=== PATIENT | female | born 1945 | race Caucasian/White ===

== ENCOUNTER 2017-11-04 10:12 | Outpatient (REF) | payer MEDICARE, MEDICAID, SELFPAY ==
[2017-11-04 10:37] LABS: INR 1.9 (1.0-3.5); Prothrombin Time 17.8 sec (9.3-10.8)
== END 2017-11-04 10:13 ==
LOC: NCHCN 10:12
PROVIDERS: PCP Family Medicine; Visit Provider Family Medicine
DX: I48.91 Unspecified atrial fibrillation (principal); Z79.01 Long term (current) use of anticoagulants
CPT/HCPCS: 85610

== ENCOUNTER 2017-11-12 12:36 | Outpatient (REF) | payer MEDICARE, MEDICAID, SELFPAY ==
[2017-11-12 12:52] LABS: INR 1.7 (1.0-3.5); Prothrombin Time 16.7 sec (9.3-10.8)
== END 2017-11-12 12:37 ==
LOC: NCHCN 12:36
PROVIDERS: PCP Family Medicine; Visit Provider Family Medicine
DX: Z79.01 Long term (current) use of anticoagulants (principal); I48.91 Unspecified atrial fibrillation
CPT/HCPCS: 85610

== ENCOUNTER 2017-11-19 10:28 | Outpatient (REF) | payer MEDICARE, MEDICAID, SELFPAY ==
[2017-11-19 11:15] LABS: INR 2.6 (1.0-3.5); Prothrombin Time 24.2 sec (9.3-10.8)
== END 2017-11-19 10:29 ==
LOC: NCHCN 10:28
PROVIDERS: PCP Family Medicine; Visit Provider Family Medicine
DX: I48.91 Unspecified atrial fibrillation (principal); Z79.01 Long term (current) use of anticoagulants
CPT/HCPCS: 85610

== ENCOUNTER 2017-12-10 13:15 | Outpatient (REF) | payer MEDICARE, MEDICAID, SELFPAY ==
[2017-12-10 14:03] LABS: INR 3.2 (1.0-3.5); Prothrombin Time 29.9 sec (9.3-10.8)
== END 2017-12-10 13:35 ==
LOC: NCHCN 13:15
PROVIDERS: PCP Family Medicine; Visit Provider Family Medicine
DX: I48.91 Unspecified atrial fibrillation (principal); Z79.01 Long term (current) use of anticoagulants
CPT/HCPCS: 85610

== ENCOUNTER 2017-12-17 15:12 | Outpatient (REF) | payer MEDICARE, MEDICAID, SELFPAY ==
[2017-12-17 18:04] LABS: INR 3.2 (1.0-3.5); Prothrombin Time 29.7 sec (9.3-10.8)
== END 2017-12-17 15:32 ==
LOC: NCHCN 15:12
PROVIDERS: PCP Family Medicine; Visit Provider Family Medicine
DX: Z79.01 Long term (current) use of anticoagulants (principal); R69 Illness, unspecified
CPT/HCPCS: 85610

== ENCOUNTER 2017-12-24 14:52 | Outpatient (REF) | payer MEDICARE, MEDICAID, SELFPAY ==
[2017-12-24 15:58] LABS: INR 2.3 (1.0-3.5); Prothrombin Time 21.4 sec (9.3-10.8)
== END 2017-12-24 15:12 ==
LOC: NCHCN 14:52
PROVIDERS: PCP Family Medicine; Visit Provider Family Medicine
DX: I48.2 Chronic atrial fibrillation (principal); Z79.02 Long term (current) use of antithrombotics/antiplatelets
CPT/HCPCS: 85610

== ENCOUNTER 2018-01-07 12:10 | Outpatient (REF) | payer MEDICARE, MEDICAID, SELFPAY ==
[2018-01-07 12:40] LABS: INR 2.5 (1.0-3.5); Prothrombin Time 23.2 sec (9.3-10.8)
== END 2018-01-07 12:30 ==
LOC: NCHCN 12:10
PROVIDERS: PCP Family Medicine; Visit Provider Family Medicine
DX: I48.91 Unspecified atrial fibrillation (principal); Z79.01 Long term (current) use of anticoagulants
CPT/HCPCS: 85610

== ENCOUNTER 2018-02-09 11:11 | Outpatient (REF) | payer MEDICARE, MEDICAID, SELFPAY ==
[2018-02-09 12:04] LABS: INR 2.1 (1.0-3.5); Prothrombin Time 20.2 sec (9.3-10.8)
== END 2018-02-09 11:31 ==
LOC: NCHCN 11:11
PROVIDERS: PCP Family Medicine; Visit Provider Family Medicine
DX: I48.91 Unspecified atrial fibrillation (principal); Z79.01 Long term (current) use of anticoagulants
CPT/HCPCS: 85610

== ENCOUNTER 2018-03-08 13:13 | Outpatient (REF) | payer MEDICARE, MEDICAID, SELFPAY ==
[2018-03-08 15:19] LABS: INR 2.2 (1.0-3.5); Prothrombin Time 22.2 sec (9.3-11.0)
== END 2018-03-08 13:33 ==
LOC: NCHCN 13:13
PROVIDERS: PCP Family Medicine; Visit Provider Family Medicine
DX: I48.91 Unspecified atrial fibrillation (principal); Z79.01 Long term (current) use of anticoagulants
CPT/HCPCS: 85610

== ENCOUNTER 2018-03-31 11:44 | Outpatient (REF) | payer MEDICARE, MEDICAID, SELFPAY ==
[2018-03-31 12:14] LABS: Prothrombin Time 20.6 sec (9.3-11.0)
== END 2018-03-31 12:04 ==
LOC: NCHCN 11:44
PROVIDERS: PCP Family Medicine; Visit Provider Family Medicine
DX: I48.91 Unspecified atrial fibrillation (principal); Z79.01 Long term (current) use of anticoagulants
CPT/HCPCS: 85610

== ENCOUNTER 2018-04-29 11:51 | Outpatient (REF) | payer MEDICARE, MEDICAID, SELFPAY ==
[2018-04-29 12:41] LABS: INR 2.4 (0.9-1.1); Prothrombin Time 24.2 sec (9.3-11.0)
== END 2018-04-29 12:11 ==
LOC: NCHCN 11:51
PROVIDERS: PCP Family Medicine; Visit Provider Family Medicine
DX: I48.91 Unspecified atrial fibrillation (principal); Z79.01 Long term (current) use of anticoagulants
CPT/HCPCS: 85610

== ENCOUNTER 2018-05-27 11:52 | Outpatient (REF) | payer MEDICARE, MEDICAID, SELFPAY ==
[2018-05-27 12:33] LABS: INR 2.3 (0.9-1.1); Prothrombin Time 23.5 sec (9.3-11.0)
== END 2018-05-27 12:12 ==
LOC: NCHCN 11:52
PROVIDERS: PCP Family Medicine; Visit Provider Family Medicine
DX: I48.91 Unspecified atrial fibrillation (principal); Z79.01 Long term (current) use of anticoagulants
CPT/HCPCS: 85610

== ENCOUNTER 2018-06-28 14:37 | Outpatient (REF) | payer MEDICARE, MEDICAID, SELFPAY ==
[2018-06-28 15:32] LABS: INR 1.8 (0.9-1.1); Prothrombin Time 18.4 sec (9.3-11.0)
== END 2018-06-28 14:57 ==
LOC: NCHCN 14:37
PROVIDERS: PCP Family Medicine; Visit Provider Family Medicine
DX: I48.91 Unspecified atrial fibrillation (principal); Z79.01 Long term (current) use of anticoagulants
CPT/HCPCS: 85610

== ENCOUNTER 2018-07-02 15:29 | Outpatient (REF) | payer MEDICARE, MEDICAID, SELFPAY ==
[2018-07-02 19:10] LABS: Anion Gap 8.1 mmol/L (3-11); BUN 20 mg/dL (7-18); CO2 30.9 mmol/L (21.0-32.0); CREATININE 1.25 mg/dL (0.55-1.02); Calcium 8.7 mg/dL (8.5-10.1); Chloride 102 mmol/L (98-107); Estimated GFR 42.01 (mL/min/1.73m2); Glucose 95 mg/dL (70-100); Potassium 4.1 mmol/L (3.5-5.1); Sodium 141 mmol/L (136-145); TSH (W/Ref FT4) 1.19 uIU/mL (0.358-3.74)
[2018-07-02 19:12] LABS: Hemoglobin A1C 5.4 % (4.5-6.2)
== END 2018-07-02 15:49 ==
LOC: NCHCN 15:29
PROVIDERS: PCP Family Medicine; Visit Provider Family Medicine
DX: I10 Essential (primary) hypertension (principal); E03.9 Hypothyroidism, unspecified; R79.89 Other specified abnormal findings of blood chemistry
CPT/HCPCS: 80048; 83036; 84443

== ENCOUNTER 2018-07-12 13:57 | Outpatient (REF) | payer MEDICARE, MEDICAID, SELFPAY ==
[2018-07-12 14:42] LABS: INR 1.9 (0.9-1.1); Prothrombin Time 19.1 sec (9.3-11.0)
== END 2018-07-12 14:17 ==
LOC: NCHCN 13:57
PROVIDERS: PCP Family Medicine; Visit Provider Family Medicine
DX: I48.91 Unspecified atrial fibrillation (principal); Z79.01 Long term (current) use of anticoagulants
CPT/HCPCS: 85610

== ENCOUNTER 2018-07-14 00:41 | Outpatient (CLI) | payer MEDICARE, MEDICAID, SELFPAY ==
--- NOTE | 2018-07-14 10:40 | DI.US_ITS ---
SYMPTOM/DIAGNOSIS: ABNL KIDNEY FUNCTION, R94.4, WORSENING RENAL FUNCTION RENAL ULTRASOUND: The right kidney measures 9.8. and the left kidney measures 10.8 cm. There is no evidence of hydronephrosis, a mass, cyst or nephrolithiasis. The bladder is non distended and contains approximately 7 cc's. SUMMARY: The kidneys are acoustically normal. The bladder could not be evaluated at the time of this examination due to incomplete filling.
== END 2018-07-14 01:01 ==
PROVIDERS: PCP Family Medicine; Visit Provider Family Medicine
DX: R94.4 Abnormal results of kidney function studies (principal); N28.9 Disorder of kidney and ureter, unspecified
CPT/HCPCS: 76770

== ENCOUNTER 2018-07-29 12:51 | Outpatient (REF) | payer MEDICARE, MEDICAID, SELFPAY ==
[2018-07-29 13:17] LABS: PTT Activated 41.7 sec (21.0-31.4)
== END 2018-07-29 13:11 ==
LOC: NCHCN 12:51
PROVIDERS: PCP Family Medicine; Visit Provider Family Medicine
DX: I48.91 Unspecified atrial fibrillation (principal); Z79.01 Long term (current) use of anticoagulants
CPT/HCPCS: 85730

== ENCOUNTER 2018-08-02 11:28 | Outpatient (REF) | payer MEDICARE, MEDICAID, SELFPAY ==
[2018-08-02 13:22] LABS: INR 2.3 (0.9-1.1); Prothrombin Time 23.4 sec (9.3-11.0)
[2018-08-02 13:41] LABS: Anion Gap 7.8 mmol/L (3-11); BUN 13 mg/dL (7-18); CO2 31.2 mmol/L (21.0-32.0); CREATININE 0.98 mg/dL (0.55-1.02); Calcium 8.7 mg/dL (8.5-10.1); Chloride 102 mmol/L (98-107); Estimated GFR 55.63 (mL/min/1.73m2); Glucose 60 mg/dL (70-100); Potassium 4.2 mmol/L (3.5-5.1); Sodium 141 mmol/L (136-145)
== END 2018-08-02 11:48 ==
LOC: LBN 11:28
PROVIDERS: PCP Family Medicine; Visit Provider Family Medicine
DX: R94.4 Abnormal results of kidney function studies (principal); Z79.01 Long term (current) use of anticoagulants; I48.2 Chronic atrial fibrillation
CPT/HCPCS: 80048; 85610

== ENCOUNTER 2018-09-02 12:09 | Outpatient (REF) | payer MEDICARE, MEDICAID, SELFPAY ==
[2018-09-02 13:13] LABS: INR 2.2 (0.9-1.1); Prothrombin Time 21.9 sec (9.3-11.0)
== END 2018-09-02 12:29 ==
LOC: NCHCN 12:09
PROVIDERS: PCP Family Medicine; Visit Provider Family Medicine
DX: I48.91 Unspecified atrial fibrillation (principal); Z79.01 Long term (current) use of anticoagulants
CPT/HCPCS: 85610

== ENCOUNTER 2018-09-29 12:09 | Outpatient (REF) | payer MEDICARE, MEDICAID, SELFPAY ==
[2018-09-29 13:45] LABS: INR 2.1 (0.9-1.1); Prothrombin Time 21.6 sec (9.3-11.0)
== END 2018-09-29 12:29 ==
LOC: NCHCN 12:09
PROVIDERS: PCP Family Medicine; Visit Provider Family Medicine
DX: I48.91 Unspecified atrial fibrillation (principal); Z79.01 Long term (current) use of anticoagulants
CPT/HCPCS: 85610

== ENCOUNTER 2018-11-01 18:30 | Outpatient (REF) | payer MEDICARE, MEDICAID, SELFPAY ==
[2018-11-01 14:22] LABS: INR 1.8 (0.9-1.1); Prothrombin Time 17.9 sec (9.3-11.0)
== END 2018-11-01 18:50 ==
LOC: LBN 18:30
PROVIDERS: PCP Family Medicine; Visit Provider Family Medicine
DX: Z79.01 Long term (current) use of anticoagulants (principal); R69 Illness, unspecified
CPT/HCPCS: 85610

== ENCOUNTER 2018-11-15 14:28 | Outpatient (REF) | payer MEDICARE, MEDICAID, SELFPAY ==
[2018-11-15 15:24] LABS: INR 1.8 (0.9-1.1); Prothrombin Time 18.3 sec (9.3-11.0)
== END 2018-11-15 14:48 ==
LOC: NCHCN 14:28
PROVIDERS: PCP Family Medicine; Visit Provider Family Medicine
DX: I48.91 Unspecified atrial fibrillation (principal); Z79.01 Long term (current) use of anticoagulants
CPT/HCPCS: 85610

== ENCOUNTER 2018-11-22 19:30 | Outpatient (REF) | payer MEDICARE, MEDICAID, SELFPAY ==
[2018-11-22 14:22] LABS: INR 2.1 (0.9-1.1); Prothrombin Time 20.9 sec (9.3-11.0)
== END 2018-11-22 19:50 ==
LOC: LBN 19:30
PROVIDERS: PCP Family Medicine; Visit Provider Family Medicine
DX: Z79.01 Long term (current) use of anticoagulants (principal); R69 Illness, unspecified
CPT/HCPCS: 85610

== ENCOUNTER 2018-12-29 15:11 | Outpatient (REF) | payer MEDICARE, MEDICAID, SELFPAY ==
[2018-12-29 15:42] LABS: Prothrombin Time 39.3 sec (9.3-11.0)
[2018-12-29 15:49] LABS: INR 4.1 (0.9-1.1)
== END 2018-12-29 15:31 ==
LOC: LBN 15:11
PROVIDERS: PCP Family Medicine; Visit Provider Family Medicine
DX: I48.91 Unspecified atrial fibrillation (principal); Z79.01 Long term (current) use of anticoagulants
CPT/HCPCS: 85610

== ENCOUNTER 2019-01-12 13:34 | Outpatient (REF) | payer MEDICARE, MEDICAID, SELFPAY ==
[2019-01-12 14:24] LABS: INR 3.6 (0.9-1.1); Prothrombin Time 35.4 sec (9.3-11.0)
== END 2019-01-12 13:54 ==
LOC: NCHCN 13:34
PROVIDERS: PCP Family Medicine; Visit Provider Family Medicine
DX: I48.91 Unspecified atrial fibrillation (principal); Z79.01 Long term (current) use of anticoagulants
CPT/HCPCS: 85610

== ENCOUNTER 2019-01-26 08:36 | Outpatient (REF) | payer MEDICARE, MEDICAID, SELFPAY ==
[2019-01-26 11:08] LABS: Prothrombin Time 24.1 sec (9.3-11.0)
[2019-01-26 11:30] LABS: INR 2.4 (0.9-1.1)
== END 2019-01-26 08:56 ==
LOC: NCHCN 08:36
PROVIDERS: PCP Family Medicine; Visit Provider Family Medicine
DX: I48.91 Unspecified atrial fibrillation (principal); Z79.01 Long term (current) use of anticoagulants
CPT/HCPCS: 85610

== ENCOUNTER 2019-02-25 13:45 | Outpatient (REF) | payer MEDICARE, MEDICAID, SELFPAY ==
[2019-02-25 15:17] LABS: INR 2.5 (0.9-1.1); Prothrombin Time 24.5 sec (9.3-11.0)
== END 2019-02-25 14:05 ==
LOC: LBN 13:45
PROVIDERS: PCP Family Medicine; Visit Provider Family Medicine
DX: I48.91 Unspecified atrial fibrillation (principal); Z79.01 Long term (current) use of anticoagulants
CPT/HCPCS: 85610

== ENCOUNTER 2019-03-28 15:10 | Outpatient (REF) | payer MEDICARE, MEDICAID, SELFPAY ==
[2019-03-28 15:42] LABS: Prothrombin Time 29.7 sec (9.3-11.0)
== END 2019-03-28 15:30 ==
LOC: NCHCN 15:10
PROVIDERS: PCP Family Medicine; Visit Provider Family Medicine
DX: I48.91 Unspecified atrial fibrillation (principal); Z79.01 Long term (current) use of anticoagulants
CPT/HCPCS: 85610

== ENCOUNTER 2019-04-27 08:20 | Outpatient (REF) | payer MEDICARE, MEDICAID, SELFPAY ==
[2019-04-27 09:20] LABS: INR 2.8 (0.9-1.1); Prothrombin Time 27.6 sec (9.3-11.0)
== END 2019-04-27 08:40 ==
LOC: LBN 08:20
PROVIDERS: PCP Family Medicine; Visit Provider Family Medicine
DX: I48.91 Unspecified atrial fibrillation (principal); Z79.01 Long term (current) use of anticoagulants
CPT/HCPCS: 85610

== ENCOUNTER 2019-05-25 09:42 | Outpatient (REF) | payer MEDICARE, MEDICAID, SELFPAY ==
[2019-05-25 10:33] LABS: INR 2.7 (0.9-1.1); Prothrombin Time 26.8 sec (9.3-11.0)
== END 2019-05-25 10:02 ==
LOC: NCHCN 09:42
PROVIDERS: PCP Family Medicine; Visit Provider Family Medicine
DX: I48.91 Unspecified atrial fibrillation (principal); Z79.01 Long term (current) use of anticoagulants
CPT/HCPCS: 85610

== ENCOUNTER 2019-06-30 15:42 | Outpatient (REF) | payer MEDICARE, MEDICAID, SELFPAY ==
[2019-06-30 16:56] LABS: INR 2.6 (0.9-1.1); Prothrombin Time 25.4 sec (9.3-11.0)
== END 2019-06-30 16:02 ==
LOC: NCHCN 15:42
PROVIDERS: PCP Family Medicine; Visit Provider Family Medicine
DX: I48.91 Unspecified atrial fibrillation (principal); Z79.01 Long term (current) use of anticoagulants
CPT/HCPCS: 85610

== ENCOUNTER 2019-08-03 12:40 | Outpatient (REF) | payer MEDICARE, MEDICAID, SELFPAY ==
[2019-08-03 13:45] LABS: INR 3.1 (0.9-1.1); Prothrombin Time 30.3 sec (9.3-11.0)
== END 2019-08-03 13:00 ==
LOC: LBN 12:40
PROVIDERS: PCP Family Medicine; Visit Provider Family Medicine
DX: I48.20 Chronic atrial fibrillation, unspecified (principal); Z79.01 Long term (current) use of anticoagulants
CPT/HCPCS: 85610

== ENCOUNTER 2019-09-02 13:17 | Outpatient (REF) | payer MEDICARE, MEDICAID, SELFPAY ==
[2019-09-02 13:59] LABS: INR 3.4 (0.9-1.1); Prothrombin Time 33.3 sec (9.3-11.0)
== END 2019-09-02 13:37 ==
LOC: LBN 13:17
PROVIDERS: PCP Family Medicine; Visit Provider Family Medicine
DX: I48.20 Chronic atrial fibrillation, unspecified (principal); Z79.01 Long term (current) use of anticoagulants
CPT/HCPCS: 85610

== ENCOUNTER 2019-09-16 16:19 | Outpatient (REF) | payer MEDICARE, MEDICAID, SELFPAY ==
[2019-09-16 18:07] LABS: INR 2.9 (0.9-1.1); Prothrombin Time 28.2 sec (9.3-11.0)
== END 2019-09-16 16:39 ==
LOC: LBN 16:19
PROVIDERS: PCP Family Medicine; Visit Provider Family Medicine
DX: I48.20 Chronic atrial fibrillation, unspecified (principal); Z79.01 Long term (current) use of anticoagulants
CPT/HCPCS: 85610

== ENCOUNTER 2019-09-27 21:56 | Outpatient (REF) | payer MEDICARE, MEDICAID, SELFPAY ==
[2019-09-27 17:34] LABS: INR 2.3 (0.9-1.1)
== END 2019-09-27 22:16 ==
LOC: LBN 21:56
PROVIDERS: PCP Family Medicine; Visit Provider Family Medicine
DX: I48.20 Chronic atrial fibrillation, unspecified (principal); Z79.01 Long term (current) use of anticoagulants
CPT/HCPCS: 85610

== ENCOUNTER 2019-10-26 14:18 | Outpatient (REF) | payer MEDICARE, MEDICAID, SELFPAY ==
[2019-10-26 14:56] LABS: INR 1.9 (0.9-1.1); Prothrombin Time 19.1 sec (9.3-11.0)
== END 2019-10-26 14:38 ==
LOC: NCHCN 14:18
PROVIDERS: PCP Family Medicine; Visit Provider Family Medicine
DX: Z79.01 Long term (current) use of anticoagulants (principal)
CPT/HCPCS: 85610

== ENCOUNTER 2019-11-11 18:36 | Outpatient (REF) | payer MEDICARE, MEDICAID, SELFPAY ==
[2019-11-11 16:11] LABS: Prothrombin Time 19.6 sec (9.3-11.0)
[2019-11-11 16:47] LABS: Anion Gap 9.2 mmol/L (3-11); BUN 17 mg/dL (7-18); CO2 27.8 mmol/L (21.0-32.0); CREATININE 0.96 mg/dL (0.55-1.02); Calcium 8.6 mg/dL (8.5-10.1); Chloride 102 mmol/L (98-107); Estimated GFR 56.66 (mL/min/1.73m2); Glucose 120 mg/dL (74-106); Potassium 4.3 mmol/L (3.5-5.1); Sodium 139 mmol/L (136-145); TSH (W/Ref FT4) 0.77 uIU/mL (0.36-3.74)
== END 2019-11-11 18:56 ==
LOC: NCHCN 18:36
PROVIDERS: PCP Family Medicine; Visit Provider Family Medicine
DX: I10 Essential (primary) hypertension (principal); E03.9 Hypothyroidism, unspecified; I48.0 Paroxysmal atrial fibrillation
CPT/HCPCS: 80048; 84443; 85610

== ENCOUNTER 2019-12-16 13:55 | Outpatient (REF) | payer MEDICARE, MEDICAID, SELFPAY ==
[2019-12-16 14:53] LABS: INR 2.4 (0.9-1.1); Prothrombin Time 23.8 sec (9.3-11.0)
== END 2019-12-16 14:15 ==
LOC: LBN 13:55
PROVIDERS: PCP Family Medicine; Visit Provider Family Medicine
DX: I48.0 Paroxysmal atrial fibrillation (principal); Z79.01 Long term (current) use of anticoagulants
CPT/HCPCS: 85610

== ENCOUNTER 2020-01-19 14:17 | Outpatient (REF) | payer MEDICARE, MEDICAID, SELFPAY ==
[2020-01-19 10:57] LABS: INR 1.6 (0.9-1.1); Prothrombin Time 16.4 sec (9.3-11.0)
== END 2020-01-19 14:37 ==
LOC: NCHCN 14:17
PROVIDERS: PCP Family Medicine; Visit Provider Family Medicine
DX: Z79.01 Long term (current) use of anticoagulants (principal)
CPT/HCPCS: 85610

== ENCOUNTER 2020-03-21 16:07 | Outpatient (REF) | payer MEDICARE, MEDICAID, SELFPAY ==
[2020-03-21 14:53] LABS: INR 2.5 (0.9-1.1); Prothrombin Time 24.2 sec (9.3-11.0)
== END 2020-03-21 16:27 ==
LOC: LBN 16:07
PROVIDERS: PCP Family Medicine; Visit Provider Family Medicine
DX: I48.0 Paroxysmal atrial fibrillation (principal); Z79.01 Long term (current) use of anticoagulants
CPT/HCPCS: 85610

== ENCOUNTER 2020-04-18 15:22 | Outpatient (REF) | payer MEDICARE, MEDICAID, SELFPAY ==
[2020-04-18 14:33] LABS: Prothrombin Time 19.4 sec (9.3-11.0)
== END 2020-04-18 15:42 ==
LOC: LBN 15:22
PROVIDERS: PCP Family Medicine; Visit Provider Nurse Practitioner Family
DX: Z79.01 Long term (current) use of anticoagulants (principal)
CPT/HCPCS: 85610

== ENCOUNTER 2020-05-15 21:53 | Outpatient (REF) | payer MEDICARE, MEDICAID, SELFPAY ==
[2020-05-15 14:03] LABS: ALT 14 U/L (14-59); AST 13 U/L (15-37); Alkaline Phosphatase 65 U/L (46-116); Anion Gap 3.7 mmol/L (3-11); BUN 17 mg/dL (7-18); Bilirubin, Total 0.6 mg/dL (0.2-1.0); CO2 31.3 mmol/L (21.0-32.0); CREATININE 0.9 mg/dL (0.55-1.02); Calcium 8.3 mg/dL (8.5-10.1); Chloride 104 mmol/L (98-107); Glucose 99 mg/dL (74-106); Potassium 4.4 mmol/L (3.5-5.1); Sodium 139 mmol/L (136-145); Total Protein 6.3 g/dL (6.4-8.2)
[2020-05-15 14:17] LABS: INR 1.4 (0.9-1.1); Prothrombin Time 13.8 sec (9.3-11.0)
[2020-05-15 14:35] LABS: Hemoglobin A1C 5.5 % (<5.7)
== END 2020-05-15 21:54 | disposition home or self-care (01) ==
LOC: NCHCN 21:53
PROVIDERS: PCP Family Medicine; Visit Provider Nurse Practitioner Family
DX: I48.0 Paroxysmal atrial fibrillation (principal); I10 Essential (primary) hypertension; N18.30 Chronic kidney disease, stage 3 unspecified; Z79.01 Long term (current) use of anticoagulants
CPT/HCPCS: 80053; 83036; 85610

== ENCOUNTER 2020-05-23 16:07 | Outpatient (REF) | payer MEDICARE, MEDICAID, SELFPAY ==
[2020-05-23 13:40] LABS: INR 1.8 (0.9-1.1); Prothrombin Time 17.9 sec (9.3-11.0)
== END 2020-05-23 16:08 | disposition home or self-care (01) ==
LOC: NCHCN 16:07
PROVIDERS: PCP Family Medicine; Visit Provider Nurse Practitioner Family
DX: I48.91 Unspecified atrial fibrillation (principal); Z79.01 Long term (current) use of anticoagulants
CPT/HCPCS: 85610

== ENCOUNTER 2020-05-30 16:17 | Outpatient (REF) | payer MEDICARE, MEDICAID, SELFPAY ==
[2020-05-30 14:52] LABS: INR 1.9 (0.9-1.1); Prothrombin Time 18.7 sec (9.3-11.0)
[2020-05-30 15:44] LABS: COMMENT (LAB VIEW ONLY) 210.13 mg/dL
[2020-05-30 15:48] LABS: Bilirubin Negative (Negative); Blood Negative (Negative); Clarity Clear (Clear); Glucose Negative (Negative); Ketones Negative (Negative); Leukocyte Esterase Negative (Negative); Nitrite Negative (Negative); Specific Gravity >= 1.030 (1.005-1.025); Urobilinogen 0.2 EU/dL (Up TO 0.2)
== END 2020-05-30 16:18 | disposition home or self-care (01) ==
LOC: NCHCN 16:17
PROVIDERS: PCP Family Medicine; Visit Provider Nurse Practitioner Family
DX: I10 Essential (primary) hypertension (principal); I48.0 Paroxysmal atrial fibrillation; E03.9 Hypothyroidism, unspecified; N18.30 Chronic kidney disease, stage 3 unspecified; I87.8 Other specified disorders of veins; N39.46 Mixed incontinence; Z79.01 Long term (current) use of anticoagulants
CPT/HCPCS: 81003; 82043; 82570; 85610

== ENCOUNTER 2020-06-11 13:15 | Outpatient (REF) | payer MEDICARE, MEDICAID, SELFPAY ==
[2020-06-11 14:21] LABS: INR 2.3 (0.9-1.1); Prothrombin Time 22.4 sec (9.3-11.0)
== END 2020-06-11 13:16 | disposition home or self-care (01) ==
LOC: LBN 13:15
PROVIDERS: PCP Family Medicine; Visit Provider Nurse Practitioner Family
DX: I48.20 Chronic atrial fibrillation, unspecified (principal); Z79.01 Long term (current) use of anticoagulants
CPT/HCPCS: 85610

== ENCOUNTER 2020-06-25 14:21 | Outpatient (REF) | payer MEDICARE, MEDICAID, SELFPAY ==
[2020-06-25 14:46] LABS: Prothrombin Time 20.2 sec (9.3-11.0)
== END 2020-06-25 14:22 | disposition home or self-care (01) ==
LOC: NCHCN 14:21
PROVIDERS: PCP Family Medicine; Visit Provider Nurse Practitioner Family
DX: I48.20 Chronic atrial fibrillation, unspecified (principal); Z79.01 Long term (current) use of anticoagulants
CPT/HCPCS: 85610

== ENCOUNTER 2020-07-09 10:58 | Outpatient (REF) | payer MEDICARE, MEDICAID, SELFPAY ==
[2020-07-09 12:07] LABS: INR 2.5 (0.9-1.1); Prothrombin Time 24.8 sec (9.3-11.0)
== END 2020-07-09 10:59 | disposition home or self-care (01) ==
LOC: LBN 10:58
PROVIDERS: PCP Family Medicine; Visit Provider Nurse Practitioner Family
DX: I48.20 Chronic atrial fibrillation, unspecified (principal); Z79.01 Long term (current) use of anticoagulants
CPT/HCPCS: 85610

== ENCOUNTER 2020-08-06 14:19 | Outpatient (REF) | payer MEDICARE, MEDICAID, SELFPAY ==
[2020-08-06 14:44] LABS: INR 3.2 (0.9-1.1); Prothrombin Time 31.4 sec (9.3-11.0)
== END 2020-08-06 14:20 | disposition home or self-care (01) ==
LOC: NCHCN 14:19
PROVIDERS: PCP Family Medicine; Visit Provider Nurse Practitioner Family
DX: I48.20 Chronic atrial fibrillation, unspecified (principal); Z79.01 Long term (current) use of anticoagulants
CPT/HCPCS: 85610

== ENCOUNTER 2020-08-13 12:24 | Outpatient (REF) | payer MEDICARE, MEDICAID, SELFPAY | END 2020-08-13 12:25 | disposition home or self-care (01) | LOC: LBN 12:24 | PROVIDERS: PCP Family Medicine; Visit Provider Nurse Practitioner Family | DX: I48.20 Chronic atrial fibrillation, unspecified (principal); Z79.01 Long term (current) use of anticoagulants | CPT/HCPCS: 85610 ==

== ENCOUNTER 2020-09-13 18:21 | Outpatient (REF) | payer MEDICARE, MEDICAID, SELFPAY ==
[2020-09-13 13:14] LABS: INR 1.9 (0.9-1.1); Prothrombin Time 18.4 sec (9.3-11.0)
== END 2020-09-13 18:22 | disposition home or self-care (01) ==
LOC: LBN 18:21
PROVIDERS: PCP Family Medicine; Visit Provider Nurse Practitioner Family
DX: I48.20 Chronic atrial fibrillation, unspecified (principal); Z79.01 Long term (current) use of anticoagulants
CPT/HCPCS: 85610

== ENCOUNTER 2020-09-24 10:37 | Outpatient (REF) | payer MEDICARE, MEDICAID, SELFPAY | END 2020-09-24 10:38 | disposition home or self-care (01) | LOC: LBN 10:37 | PROVIDERS: PCP Family Medicine; Visit Provider Nurse Practitioner Family | DX: I48.20 Chronic atrial fibrillation, unspecified (principal); Z79.01 Long term (current) use of anticoagulants | CPT/HCPCS: 85610 ==

== ENCOUNTER 2020-10-01 21:10 | Outpatient (REF) | payer MEDICARE, MEDICAID, SELFPAY ==
[2020-10-01 16:48] LABS: INR 2.1 (0.9-1.1); Prothrombin Time 21.1 sec (9.3-11.0)
== END 2020-10-01 21:11 | disposition home or self-care (01) ==
LOC: NCHCN 21:10
PROVIDERS: PCP Family Medicine; Visit Provider Nurse Practitioner Family
DX: Z79.01 Long term (current) use of anticoagulants (principal)
CPT/HCPCS: 85610

== ENCOUNTER 2020-10-16 13:21 | Outpatient (REF) | payer MEDICARE, MEDICAID, SELFPAY ==
[2020-10-16 14:27] LABS: INR 2.8 (0.9-1.1); Prothrombin Time 27.4 sec (9.3-11.0)
== END 2020-10-16 13:22 | disposition home or self-care (01) ==
LOC: LBN 13:21
PROVIDERS: PCP Family Medicine; Visit Provider Nurse Practitioner Family
DX: I48.20 Chronic atrial fibrillation, unspecified (principal); Z79.01 Long term (current) use of anticoagulants
CPT/HCPCS: 85610

== ENCOUNTER 2020-11-19 16:55 | Outpatient (REF) | payer MEDICARE, MEDICAID, SELFPAY ==
[2020-11-19 18:24] LABS: INR 2.8 (0.9-1.1); Prothrombin Time 27.6 sec (9.3-11.0)
== END 2020-11-19 16:56 | disposition home or self-care (01) ==
LOC: LBN 16:55
PROVIDERS: PCP Family Medicine; Visit Provider Nurse Practitioner Family
DX: I48.20 Chronic atrial fibrillation, unspecified (principal); Z79.01 Long term (current) use of anticoagulants
CPT/HCPCS: 85610

== ENCOUNTER 2020-12-17 16:10 | Outpatient (REF) | payer MEDICARE, MEDICAID, SELFPAY ==
[2020-12-17 16:52] LABS: INR 2.4 (0.9-1.1); Prothrombin Time 23.5 sec (9.3-11.0)
== END 2020-12-17 16:11 | disposition home or self-care (01) ==
LOC: NCHCN 16:10
PROVIDERS: PCP Family Medicine; Visit Provider Nurse Practitioner Family
DX: I48.0 Paroxysmal atrial fibrillation (principal)
CPT/HCPCS: 85610

== ENCOUNTER 2021-01-16 09:58 | Outpatient (REF) | payer MEDICARE, MEDICAID, SELFPAY ==
[2021-01-16 10:56] LABS: INR 2.8 (0.9-1.1); Prothrombin Time 27.4 sec (9.3-11.0)
== END 2021-01-16 09:59 | disposition home or self-care (01) ==
LOC: LBN 09:58
PROVIDERS: PCP Family Medicine; Visit Provider Nurse Practitioner Family
DX: I48.0 Paroxysmal atrial fibrillation (principal)
CPT/HCPCS: 85610

== ENCOUNTER 2021-03-29 11:44 | Outpatient (CLI) | payer MEDICARE, MEDICAID, SELFPAY ==
[2021-03-31 15:32] LABS: COVID-19 RT-PCR UVMMC Result Negative (Negative)
== END 2021-03-29 11:45 | disposition home or self-care (01) ==
PROVIDERS: PCP Family Medicine; Visit Provider Nurse Practitioner Family
DX: Z20.822 Contact with and (suspected) exposure to COVID-19 (principal)
CPT/HCPCS: U0003

== ENCOUNTER 2021-04-23 20:26 | Outpatient (REF) | payer MEDICARE, MEDICAID, SELFPAY ==
[2021-04-23 16:15] LABS: Bilirubin Negative (Negative); Blood Negative (Negative); Clarity Clear (Clear); Glucose Negative (Negative); Ketones Negative (Negative); Leukocyte Esterase Negative (Negative); Nitrite Negative (Negative); Specific Gravity 1.025 (1.005-1.025); Urobilinogen 0.2 EU/dL (Up TO 0.2)
[2021-04-23 16:45] LABS: COMMENT (LAB VIEW ONLY) 138.38 mg/dL; Microalb ug/mg Crea 8.3 ug/mg Cr
[2021-04-23 16:46] LABS: Anion Gap 7.4 mmol/L (3-11); BUN 17 mg/dL (7-18); CO2 31.6 mmol/L (21.0-32.0); CREATININE 0.9 mg/dL (0.55-1.02); Calcium 9.1 mg/dL (8.5-10.1); Chloride 102 mmol/L (98-107); Glucose 90 mg/dL (74-106); Potassium 4.2 mmol/L (3.5-5.1); Sodium 141 mmol/L (136-145); TSH (W/Ref FT4) 1.11 uIU/mL (0.36-3.74)
== END 2021-04-23 20:27 | disposition home or self-care (01) ==
LOC: NCHCN 20:26
PROVIDERS: PCP Family Medicine; Visit Provider Nurse Practitioner Family
DX: I48.0 Paroxysmal atrial fibrillation (principal); E03.9 Hypothyroidism, unspecified; I87.8 Other specified disorders of veins; N18.30 Chronic kidney disease, stage 3 unspecified; N39.46 Mixed incontinence
CPT/HCPCS: 80048; 81003; 82043; 82570; 84443

== ENCOUNTER 2021-07-26 20:12 | Outpatient (REF) | payer MEDICARE, MEDICAID, SELFPAY ==
[2021-07-27 13:16] LABS: COVID-19 RT-PCR UVMMC Result Negative (Negative)
== END 2021-07-26 20:13 | disposition home or self-care (01) ==
LOC: NCHCN 20:12
PROVIDERS: PCP Nurse Practitioner Family; Visit Provider Nurse Practitioner Family
DX: Z20.822 Contact with and (suspected) exposure to COVID-19 (principal)
CPT/HCPCS: U0003; U0005

== ENCOUNTER 2021-07-30 17:48 | Outpatient (REF) | payer MEDICARE, MEDICAID, SELFPAY ==
[2021-07-31 01:56] LABS: COVID-19 RT-PCR UVMMC Result Positive (Negative)
== END 2021-07-30 17:49 | disposition home or self-care (01) ==
LOC: NCHCN 17:48
PROVIDERS: PCP Nurse Practitioner Family; Visit Provider Nurse Practitioner Family
DX: Z20.822 Contact with and (suspected) exposure to COVID-19 (principal)
CPT/HCPCS: U0003; U0005

== ENCOUNTER 2021-08-01 10:33 | Outpatient (CLI) | payer MEDICARE, MEDICAID, SELFPAY ==
[2021-08-01 13:00] VITALS: BP 174/93; PULSE 77; RESP 20; TEMP 36.1; O2SAT 99
[2021-08-01 14:00] VITALS: BP 191/95; PULSE 72; RESP 18; TEMP 36.6; O2SAT 97
== END 2021-08-01 10:34 | disposition home or self-care (01) ==
PROVIDERS: PCP Nurse Practitioner Family; Visit Provider Family Medicine
DX: U07.1 COVID-19 (principal)
CPT/HCPCS: 96374; Q0222

== ENCOUNTER 2022-05-08 13:34 | Outpatient (REF) | payer MEDICARE, MEDICAID, SELFPAY ==
[2022-05-08 10:15] LABS: Bilirubin Negative (Negative); Blood Negative (Negative); Clarity Clear (Clear); Glucose Negative (Negative); Ketones Negative (Negative); Leukocyte Esterase Trace (Negative); Nitrite Negative (Negative); Specific Gravity <= 1.005 (1.005-1.025); Urobilinogen 0.2 EU/dL (Up TO 0.2)
[2022-05-08 10:22] LABS: Bacteria Negative HPF (Negative); C & S Indicated? Yes; Casts Negative LPF (Negative); Crystals Negative HPF (Negative); Epithelial Cells Rare HPF (Negative); Mucus Negative (Negative); RBC Negative HPF (0-2); WBC 0-2 HPF (0-5)
[2022-05-08 10:40] LABS: COMMENT (LAB VIEW ONLY) 3.01 mg/dL
[2022-05-08 10:43] LABS: Anion Gap 6.6 mmol/L (3-11); BUN 17 mg/dL (7-18); CO2 31.4 mmol/L (21.0-32.0); CREATININE 0.9 mg/dL (0.55-1.02); Chloride 102 mmol/L (98-107); Estimated GFR 65.84 (mL/min/1.73m2); Glucose 88 mg/dL (74-106); Potassium 3.7 mmol/L (3.5-5.1); Sodium 140 mmol/L (136-145); TSH (W/Ref FT4) 1.08 uIU/mL (0.36-3.74)
== END 2022-05-08 13:35 | disposition home or self-care (01) ==
LOC: NCHCN 13:34
PROVIDERS: PCP Nurse Practitioner Family; Visit Provider Nurse Practitioner Family
DX: I10 Essential (primary) hypertension (principal); E03.9 Hypothyroidism, unspecified; N18.30 Chronic kidney disease, stage 3 unspecified; R82.998 Other abnormal findings in urine
CPT/HCPCS: 80048; 81003; 81015; 82043; 82570; 84443; 87086

== ENCOUNTER 2022-11-17 14:12 | Outpatient (REF) | payer MEDICARE, MEDICAID, SELFPAY ==
[2022-11-17 16:32] LABS: Anion Gap 6.1 mmol/L (3-11); BUN 15 mg/dL (7-18); CO2 30.9 mmol/L (21.0-32.0); CREATININE 0.8 mg/dL (0.55-1.02); Calcium 8.9 mg/dL (8.5-10.1); Chloride 103 mmol/L (98-107); Estimated GFR 75.37 (mL/min/1.73m2); Glucose 90 mg/dL (74-106); Potassium 4.5 mmol/L (3.5-5.1); Sodium 140 mmol/L (136-145)
[2022-11-17 16:51] LABS: COMMENT (LAB VIEW ONLY) 155.21 mg/dL; Microalb ug/mg Crea 15.1 ug/mg Cr
== END 2022-11-17 14:13 | disposition home or self-care (01) ==
LOC: NCHCN 14:12
PROVIDERS: PCP Nurse Practitioner Family; Visit Provider Nurse Practitioner Family
DX: I10 Essential (primary) hypertension (principal); N18.30 Chronic kidney disease, stage 3 unspecified; E88.09 Other disorders of plasma-protein metabolism, not elsewhere classified; N39.46 Mixed incontinence
CPT/HCPCS: 80048; 82043; 82570

== ENCOUNTER 2022-12-03 16:27 | Outpatient (REF) | payer MEDICARE, MEDICAID, SELFPAY ==
[2022-12-03 22:17] LABS: BUN 14 mg/dL (7-18); Calcium 8.9 mg/dL (8.5-10.1); Chloride 101 mmol/L (98-107); Estimated GFR 57.66 (mL/min/1.73m2); Glucose 91 mg/dL (74-106); Potassium 4.3 mmol/L (3.5-5.1); Sodium 138 mmol/L (136-145)
== END 2022-12-03 16:28 | disposition home or self-care (01) ==
LOC: NCHCN 16:27
PROVIDERS: PCP Nurse Practitioner Family; Visit Provider Nurse Practitioner Family
DX: I10 Essential (primary) hypertension (principal)
CPT/HCPCS: 80048

== ENCOUNTER 2023-02-15 15:20 | Outpatient (REF) | payer MEDICARE, MEDICAID, SELFPAY ==
[2023-02-15 16:58] LABS: Abs Immature Grans 0.01 10^3/uL (0.0-0.06); Absolute Basophil Count 0.03 10^3/uL (0.0-0.2); Absolute Eosinophil Count 0.38 10^3/uL (0.0-0.7); Absolute Lymphocyte Count 0.88 10^3/uL (1.2-3.4); Absolute Monocyte Count 0.36 10^3/uL (0.1-0.8); Absolute Neutrophil Count 5.14 10^3/uL (1.2-6.7); Basophils % 0.4; Eosinophils % 5.6; HCT 39.5 % (36.0-46.0); HGB 12.4 g/dL (11.2-15.7); Immature Grans % 0.1; Lymphocytes % 12.9; MCH 29.3 pg (27.0-33.0); MCHC 31.4 % (32.0-36.0); MCV 93 fL (80-95); Monocytes % 5.3; Neutrophils % 75.7; Platelet Count 236 10^3/uL (130-400); RBC 4.23 10^6/uL (3.93-5.22); RDW 13.9 % (11.7-14.6); RDW-SD 48.1 fL
[2023-02-15 17:14] LABS: ALT 17 U/L (14-59); AST 16 U/L (15-37); Albumin 3.5 g/dL (3.4-5.0); Alkaline Phosphatase 72 U/L (46-116); Anion Gap 7.1 mmol/L (3-11); BUN 18 mg/dL (7-18); Bilirubin, Total 0.5 mg/dL (0.2-1.0); CO2 29.9 mmol/L (21.0-32.0); CREATININE 0.9 mg/dL (0.55-1.02); Chloride 104 mmol/L (98-107); Estimated GFR 65.44 (mL/min/1.73m2); Glucose 75 mg/dL (74-106); Potassium 4.2 mmol/L (3.5-5.1); Sodium 141 mmol/L (136-145); Total Protein 6.9 g/dL (6.4-8.2)
== END 2023-02-15 15:21 | disposition home or self-care (01) ==
LOC: NCHCN 15:20
PROVIDERS: PCP Nurse Practitioner Family; Visit Provider Nurse Practitioner Family
DX: L28.2 Other prurigo (principal)
CPT/HCPCS: 80053; 85025

== ENCOUNTER 2023-02-17 14:26 | Outpatient (REF) | payer MEDICARE, MEDICAID, SELFPAY ==
--- NOTE | 2023-02-17 09:30 | SKI_PTH ---
PATIENT: Yasmin Vanegas LOC: [facility]#:[id number] AGE/SX: 77/F ROOM: RE02/17/[address]: Liliana Noble : 1945 BED: DIS: 02/17/2023 SPEC #: [id number] RECD: 02/17/23 16:00 STATUS: DAVIDE TEIXEIRA #: [id number] VIRAL: 02/17/23 09:[address]: Liliana Noble DEPT: Surgical Specimen RECD BY: Page Ballard Tissues: 1 - SKIN BIOPSY(SHAVE/PUNCH) 2 - SKIN BIOPSY(SHAVE/PUNCH) Procedures: SKIN LEVEL 4 SPECIAL STAIN 1 Comments: [id number]
== END 2023-02-17 14:27 | disposition home or self-care (01) ==
LOC: NCHCN 14:26
PROVIDERS: PCP Nurse Practitioner Family; Visit Provider Nurse Practitioner Family
DX: L28.2 Other prurigo (principal)
CPT/HCPCS: 88305; 88312

== ENCOUNTER 2023-04-26 16:00 | Outpatient (REF) | payer MEDICARE, MEDICAID, SELFPAY ==
[2023-04-26 16:26] LABS: Anion Gap 7.8 mmol/L (3-11); BUN 20 mg/dL (7-18); CO2 29.2 mmol/L (21.0-32.0); CREATININE 0.9 mg/dL (0.55-1.02); Calcium 8.8 mg/dL (8.5-10.1); Chloride 105 mmol/L (98-107); Estimated GFR 65.44 (mL/min/1.73m2); Glucose 87 mg/dL (74-106); Potassium 4.4 mmol/L (3.5-5.1); Sodium 142 mmol/L (136-145); TSH (W/Ref FT4) 0.44 uIU/mL (0.36-3.74)
== END 2023-04-26 16:01 | disposition home or self-care (01) ==
LOC: NCHCN 16:00
PROVIDERS: PCP Nurse Practitioner Family; Visit Provider Nurse Practitioner Family
DX: I10 Essential (primary) hypertension (principal); E03.9 Hypothyroidism, unspecified
CPT/HCPCS: 80048; 84443

== ENCOUNTER 2023-05-28 15:52 | Outpatient (REF) | payer MEDICARE, MEDICAID, SELFPAY ==
[2023-05-28 15:08] LABS: Bilirubin Negative (Negative); Blood Trace-intact (Negative); Clarity Sl Cloudy (Clear); Glucose Negative (Negative); Ketones Negative (Negative); Leukocyte Esterase Small (Negative); Nitrite Negative (Negative); Specific Gravity >= 1.030 (1.005-1.025); Urobilinogen 0.2 mg/dL (Up to 0.2); pH 5.5 (5-8)
[2023-05-28 15:25] LABS: COMMENT (LAB VIEW ONLY) 173.03 mg/dL; Microalb ug/mg Crea 12.1 ug/mg Cr
== END 2023-05-28 15:53 | disposition home or self-care (01) ==
LOC: NCHCN 15:52
PROVIDERS: PCP Nurse Practitioner Family; Visit Provider Nurse Practitioner Family
DX: I10 Essential (primary) hypertension (principal); R82.998 Other abnormal findings in urine
CPT/HCPCS: 81003; 82043; 82570

== ENCOUNTER → 2023-06-10 08:44 | Outpatient (BNVA) | payer MEDICARE, MEDICAID, SELFPAY | PROVIDERS: PCP Nurse Practitioner Family; Referring Provider Nurse Practitioner Family; Visit Provider Podiatrist | DX: L60.3 Nail dystrophy (principal); B35.1 Tinea unguium; I87.2 Venous insufficiency (chronic) (peripheral); R60.0 Localized edema; I70.203 Unspecified atherosclerosis of native arteries of extremities, bilateral legs | CPT/HCPCS: 11721; 99203 ==

== ENCOUNTER → 2023-09-30 13:28 | Outpatient (BNVA) | payer MEDICARE, MEDICAID, SELFPAY | PROVIDERS: PCP Nurse Practitioner Family; Referring Provider Nurse Practitioner Family; Visit Provider Physical Therapy Assistant | DX: I70.203 Unspecified atherosclerosis of native arteries of extremities, bilateral legs (principal) | CPT/HCPCS: 93922 ==

== ENCOUNTER → 2023-10-12 08:59 | Outpatient (BNVA) | payer MEDICARE, MEDICAID, SELFPAY | PROVIDERS: PCP Nurse Practitioner Family; Referring Provider Nurse Practitioner Family; Visit Provider Podiatrist | DX: L97.511 Non-pressure chronic ulcer of other part of right foot limited to breakdown of skin (principal); I70.203 Unspecified atherosclerosis of native arteries of extremities, bilateral legs; B35.1 Tinea unguium; N18.30 Chronic kidney disease, stage 3 unspecified; L60.3 Nail dystrophy; I87.2 Venous insufficiency (chronic) (peripheral); R60.9 Edema, unspecified | CPT/HCPCS: 11721 ==

== ENCOUNTER 2023-10-24 16:00 | Outpatient (REF) | payer MEDICARE, MEDICAID, SELFPAY ==
[2023-10-24 16:19] LABS: Calculated LDL 61 mg/dL (<100); Cholesterol 135 mg/dL (<200); HDL Cholesterol 65 mg/dL (40-60); Triglyceride 48 mg/dL (<150)
== END 2023-10-24 16:01 | disposition home or self-care (01) ==
LOC: NCHCN 16:00
PROVIDERS: PCP Nurse Practitioner Family; Visit Provider Nurse Practitioner Family
DX: I10 Essential (primary) hypertension (principal); I87.2 Venous insufficiency (chronic) (peripheral); E03.9 Hypothyroidism, unspecified
CPT/HCPCS: 80061

== ENCOUNTER 2023-11-25 18:04 | Outpatient (REF) | payer MEDICARE, MEDICAID, SELFPAY ==
[2023-11-25 16:25] LABS: ALT 43 U/L (14-59); AST 32 U/L (15-37); Albumin 3.6 g/dL (3.4-5.0); Alkaline Phosphatase 82 U/L (46-116); Anion Gap 6.5 mmol/L (3-11); BUN 18 mg/dL (7-18); Bilirubin, Total 0.62 mg/dL (0.2-1.0); CO2 31.5 mmol/L (21.0-32.0); CREATININE 0.8 mg/dL (0.55-1.02); Calcium 8.8 mg/dL (8.5-10.1); Calculated LDL 39 mg/dL (<100); Chloride 104 mmol/L (98-107); Cholesterol 122 mg/dL (<200); Glucose 89 mg/dL (74-106); HDL Cholesterol 78 mg/dL (40-60); Potassium 4.1 mmol/L (3.5-5.1); Sodium 142 mmol/L (136-145); Total Protein 7.3 g/dL (6.4-8.2); Triglyceride 28 mg/dL (<150)
== END 2023-11-25 18:05 | disposition home or self-care (01) ==
LOC: NCHCN 18:04
PROVIDERS: PCP Nurse Practitioner Family; Visit Provider Nurse Practitioner Family
DX: I87.2 Venous insufficiency (chronic) (peripheral) (principal)
CPT/HCPCS: 80053; 80061

== ENCOUNTER 2024-01-12 16:32 | Outpatient (REF) | payer MEDICARE, MEDICAID, SELFPAY ==
[2024-01-12 16:04] LABS: Bilirubin Negative (Negative); Blood Trace-intact (Negative); Clarity Clear (Clear); Glucose Negative (Negative); Ketones Negative (Negative); Leukocyte Esterase Trace (Negative); Nitrite Negative (Negative); Specific Gravity 1.025 (1.005-1.025); Urobilinogen 0.2 mg/dL (Up to 0.2); pH 5.5 (5-8)
[2024-01-12 16:17] LABS: RBC 0-2 HPF (0-2)
[2024-01-12 16:18] LABS: Bacteria Moderate HPF (Negative); C & S Indicated? Yes; Casts Negative LPF (Negative); Crystals Negative HPF (Negative); Epithelial Cells Rare HPF (Negative); Mucus Negative (Negative)
== END 2024-01-12 16:33 | disposition home or self-care (01) ==
LOC: NCHCN 16:32
PROVIDERS: PCP Nurse Practitioner Family; Referring Provider Nurse Practitioner Family; Visit Provider Nurse Practitioner Family
DX: N39.46 Mixed incontinence (principal); B96.29 Other Escherichia coli [E. coli] as the cause of diseases classified elsewhere
CPT/HCPCS: 87077; 81003; 81015; 87086; 87186

== ENCOUNTER → 2024-02-03 08:48 | Outpatient (BNVA) | payer MEDICARE, MEDICAID, SELFPAY | PROVIDERS: PCP Nurse Practitioner Family; Referring Provider Nurse Practitioner Family; Visit Provider Podiatrist | DX: I70.203 Unspecified atherosclerosis of native arteries of extremities, bilateral legs (principal); L60.3 Nail dystrophy; B35.1 Tinea unguium; N18.30 Chronic kidney disease, stage 3 unspecified; I87.2 Venous insufficiency (chronic) (peripheral); R60.0 Localized edema | CPT/HCPCS: 11721 ==

== ENCOUNTER 2024-03-30 18:34 | Outpatient (REF) | payer MEDICARE, MEDICAID, SELFPAY ==
[2024-03-30 16:18] LABS: Bilirubin Negative (Negative); Blood Negative (Negative); Clarity Clear (Clear); Glucose Negative (Negative); Ketones Negative (Negative); Leukocyte Esterase Negative (Negative); Nitrite Negative (Negative); Specific Gravity 1.015 (1.005-1.025); Urobilinogen 0.2 mg/dL (Up to 0.2)
[2024-03-30 16:48] LABS: Anion Gap 4.7 mmol/L (3-11); BUN 16 mg/dL (7-18); CO2 34.3 mmol/L (21.0-32.0); CREATININE 0.9 mg/dL (0.55-1.02); Calcium 9.2 mg/dL (8.5-10.1); Chloride 105 mmol/L (98-107); Estimated GFR 65.03 (mL/min/1.73m2); Glucose 101 mg/dL (74-106); Potassium 4.5 mmol/L (3.5-5.1); Sodium 144 mmol/L (136-145); TSH (W/Ref FT4) 0.43 uIU/mL (0.36-3.74)
== END 2024-03-30 18:35 | disposition home or self-care (01) ==
LOC: NCHCN 18:34
PROVIDERS: PCP Nurse Practitioner Family; Visit Provider Nurse Practitioner Family
DX: I10 Essential (primary) hypertension (principal)
CPT/HCPCS: 80048; 81003; 84443

== ENCOUNTER 2024-05-25 18:11 | Outpatient (REF) | payer MEDICARE, MEDICAID, SELFPAY ==
[2024-05-25 20:10] LABS: TSH (W/Ref FT4) 0.28 uIU/mL (0.36-3.74)
[2024-05-26 17:37] LABS: T4, Free 1.9 ng/dL (0.8-2.2)
== END 2024-05-25 18:12 | disposition home or self-care (01) ==
LOC: NCHCN 18:11
PROVIDERS: PCP Nurse Practitioner Family; Visit Provider Nurse Practitioner Family
DX: E03.9 Hypothyroidism, unspecified (principal)
CPT/HCPCS: 84439; 84443

== ENCOUNTER → 2024-06-27 09:40 | Outpatient (BNVA) | payer MEDICARE, MEDICAID, SELFPAY | PROVIDERS: PCP Nurse Practitioner Family; Referring Provider Nurse Practitioner Family; Visit Provider Podiatrist | DX: I70.203 Unspecified atherosclerosis of native arteries of extremities, bilateral legs (principal); L60.3 Nail dystrophy; B35.1 Tinea unguium; N18.30 Chronic kidney disease, stage 3 unspecified; I87.2 Venous insufficiency (chronic) (peripheral); R60.0 Localized edema; Z79.01 Long term (current) use of anticoagulants; I83.93 Asymptomatic varicose veins of bilateral lower extremities; L65.9 Nonscarring hair loss, unspecified; R23.8 Other skin changes; L60.2 Onychogryphosis; L85.8 Other specified epidermal thickening; L60.8 Other nail disorders | CPT/HCPCS: 11721 ==

== ENCOUNTER → 2024-10-25 13:29 | Outpatient (BNVA) | payer MEDICARE, MEDICAID, SELFPAY | PROVIDERS: PCP Nurse Practitioner Family; Referring Provider Nurse Practitioner Family; Visit Provider Podiatrist | DX: L60.3 Nail dystrophy (principal); B35.1 Tinea unguium; I70.203 Unspecified atherosclerosis of native arteries of extremities, bilateral legs; N18.30 Chronic kidney disease, stage 3 unspecified; I87.2 Venous insufficiency (chronic) (peripheral); R60.0 Localized edema; Z79.01 Long term (current) use of anticoagulants; R09.89 Other specified symptoms and signs involving the circulatory and respiratory systems; R23.8 Other skin changes; I83.93 Asymptomatic varicose veins of bilateral lower extremities; L65.9 Nonscarring hair loss, unspecified; L60.2 Onychogryphosis; L60.8 Other nail disorders | CPT/HCPCS: 99213; 11721 ==

== ENCOUNTER 2025-01-03 15:18 | Outpatient (REF) | payer MEDICARE, MEDICAID, SELFPAY ==
[2025-01-03 21:24] LABS: Anion Gap 7.8 mmol/L (3-11); BUN 17 mg/dL (7-18); CO2 32.2 mmol/L (21.0-32.0); Calcium 9.0 mg/dL (8.5-10.1); Chloride 101 mmol/L (98-107); Estimated GFR 74.44 (mL/min/1.73m2); Glucose 120 mg/dL (74-106); Potassium 4.4 mmol/L (3.5-5.1); Sodium 141 mmol/L (136-145); TSH (W/Ref FT4) 0.67 uIU/mL (0.36-3.74)
== END 2025-01-03 15:19 | disposition home or self-care (01) ==
LOC: NCHCN 15:18
PROVIDERS: PCP Nurse Practitioner Family; Visit Provider Nurse Practitioner Family
DX: E03.9 Hypothyroidism, unspecified (principal); I10 Essential (primary) hypertension
CPT/HCPCS: 80048; 84443